=== PATIENT | male | born 1945 | race Caucasian/White ===

== ENCOUNTER 2016-11-15 18:32 | Emergency (ER) | payer MEDICARE, OTHER ==
[2016-11-15 18:51] VITALS: BP 184/85
[2016-11-15] MEDS ORDERED: LIDOCAINE 2% 10 ML MDV SUBQ STA (20:19)
--- NOTE | 2016-11-15 20:23 | ED Physician Documentation ---
History of Present Illness - Stated complaint Stated Complaint: RT TOE PX/DIABETIC - Chief complaint Chief Complaint: General - History obtained from History obtained from: Patient, Family - History of Present Illness Timing: How many days ago (3) Pain level max: 4 Pain level now: 4 Improved by: nothing Worsened by: nothing - Additonal information Additional information: Patient is a diabetic and stubbed his right great toe a few days ago, increasing swelling and pain. Review of Systems Neurologic: denies: Focal weakness, Numbness PD PAST MEDICAL HISTORY - Past Medical History Past Medical History: Yes Cardiovascular: Hypertension, High cholesterol Endocrine/Autoimmune: Type 2 diabetes HEENT: Chronic hearing loss - Past Surgical History Past Surgical History: Yes HEENT: Cataracts - Present Medications Home Medications: Ambulatory Orders Medication Instructions Recorded Confirmed Aspirin 1 tab PO DAILY 11/15/16 11/15/16 Glipizide 1 tab PO DAILY 11/15/16 11/15/16 Lisinopril 1 tab PO DAILY 11/15/16 11/15/16 Meloxicam 1 tab PO DAILY 11/15/16 11/15/16 Metformin HCl 1 tab PO BID 11/15/16 11/15/16 Omeprazole 1 tab PO BID 11/15/16 11/15/16 - Allergies Allergies/Adverse Reactions: Allergies Allergy/AdvReac Type Severity Reaction Status Date / Time Penicillins Allergy Unknown Verified 11/15/16 18:52 - Social History Does the pt smoke?: No Smoking Status: Never smoker Does the pt drink ETOH?: No Does the pt have substance abuse?: No - Immunizations Immunizations are current?: Yes - POLST Patient has POLST: No PD ED PE NORMAL - Vitals Vital signs reviewed: Yes - General General: Alert and oriented X 3, No acute distress - Derm Derm: Warm and dry - Extremities Extremities: Other (R great toe- subungual hematoma elevating the nail from the toe. Redness and swelling present around the toe. TTP over the distal aspect. NVI) - Neuro Neuro: Alert and oriented X 3 - Psych Psych: Normal mood, Normal affect Results - Vitals Vitals: Oxygen O2 Source Room air - Labs Labs: Laboratory Tests 11/15/16 18:50 POC Whole Bld Glucose 109 H - Rads (name of study) R foot xray Radiology: Prelim report reviewed, EMP read contemporaneously, See rad report ( No acute bony abnormality identified. 2. Osteoarthritis of the first MTP joint. ) Procedures - General procedure General procedure: R great toe subungual hematoma trephination - Verbal consent obtained. 2% lidocaine was used as a digital block to anesthetize the great toe. Electrocautery was then used to trephinate the nail and the hematoma was fully evacuated. Redness and swelling resolved around the toe. Neurovascularly intact. No complications. Dressing applied. Tolerated well PD MEDICAL DECISION MAKING - ED course Complexity details: reviewed results, re-evaluated patient, considered differential, d/w patient, d/w family ED course: Patient with right great toe subungual hematoma that was trephinated and evacuated. Tolerated well. No underlying fractures. Bandage applied. Patient counseled regarding signs and symptoms for which I believe and urgent re -evaluation would be necessary. Patient with good understanding of and agreement to plan and is comfortable going home at this time This document was made in part using voice recognition software. While efforts are made to proofread this document, sound alike and grammatical errors may occur. Departure - Departure Disposition: 01 Home, Self Care Clinical Impression: Subungual hematoma Condition: Good Instructions: ED Hematoma Subungual Follow-Up: your,doctor in 1 week for wound check [Other] Comments: soak the toe twice daily in warm water for 2-3 days. Return if you worsen. Keep the toe clean. Your blood pressure was elevated today on check in to the emergency department. This does not mean that you have hypertension, it is a common phenomenon to check into the emergency department and have elevated blood pressure. I recommend that you see your primary care physician within the week to have it rechecked when you're feeling better. Discharge Date/Time: 11/15/16 21:07
[2016-11-15] MEDS ORDERED: LIDOCAINE 2% 10 ML MDV ONE (20:37)
--- NOTE | 2016-11-15 20:38 | XRAY Preliminary Report ---
Exam: XR Foot 3 View RT IMPRESSION: 1. No acute bony abnormality identified. 2. Osteoarthritis of the first MTP joint. [facility] SITE ID: [id number]
--- NOTE | 2016-11-15 20:40 | XRAY Report ---
EXAM: RIGHT FOOT RADIOGRAPHY EXAM DATE: 11/15/2016 08:08 PM. CLINICAL HISTORY: Right great toe injury. Pain and swelling for 5 days. COMPARISON: None. TECHNIQUE: 3 views. FINDINGS: Bones: Normal. No fractures or bone lesions. Joints: Degenerative changes of the first MTP joint. No subluxations. Soft Tissues: Great toe soft tissue swelling. IMPRESSION: 1. No acute bony abnormality identified. 2. Osteoarthritis of the first MTP joint. [facility] Referring Provider Line: [phone] SITE ID: [id number]
== END 2016-11-15 21:07 | disposition home or self-care (01) ==
LOC: ED 18:32
DX: S90.211A Contusion of right great toe with damage to nail, initial encounter (principal); W22.8XXA Striking against or struck by other objects, initial encounter; I10 Essential (primary) hypertension; E11.9 Type 2 diabetes mellitus without complications; Z79.84 Long term (current) use of oral hypoglycemic drugs; E78.00 Pure hypercholesterolemia, unspecified; Z79.82 Long term (current) use of aspirin
CPT/HCPCS: 11740; 99283; 99284

== ENCOUNTER 2016-12-16 12:10 | Observation (INO) | payer MEDICARE, OTHER ==
--- NOTE | 2016-12-16 12:37 | ED Physician Documentation ---
PD HPI FOCAL NEURO - Stated complaint Stated Complaint: FACE NUMBNESS - Chief complaint Chief Complaint: Neuro - History obtained from History obtained from: Patient - History of Present Illness Timing - onset: How many days ago (2) Timing - duration: Days (2) Timing - details: Abrupt onset (he noted his right face feeling "like I went to the dentist" and some weakness and also right leg "giving out" when walking, feeling some weakness noset 2 days ago when he awoke. Right arm is achey, but not notably weak. Symptoms persisted and his daughter noted him with trouble walking today and he told her symptoms, so here for evaluation.), Still present Severity of deficit: Mild Weakness: Face, Leg, Right Numbness: Face, Arm, Leg, Right Associated symptoms: No: Headache, Nausea / vomiting, Seizure, Syncope, Fall, Head injury, Chest pain Contributing factors: negative: Anticoagulated, Atrial fibrillation Baseline status: positive: A&OX3, ambulatory, indep Similar symptoms before: Has not had sx before Recently seen: Not recently seen Review of Systems Constitutional: denies: Fever, Myalgias Nose: denies: Rhinorrhea / runny nose, Congestion Throat: denies: Sore throat Cardiac: denies: Chest pain / pressure, Palpitations Respiratory: denies: Dyspnea, Cough GI: denies: Abdominal Pain, Nausea, Vomiting, Diarrhea, Bloody / black stool : denies: Dysuria, Frequency Skin: denies: Rash, Lesions Musculoskeletal: denies: Extremity pain, Extremity swelling Neurologic: reports: Focal weakness (right face and leg). denies: Near syncope , Altered mental status, Headache, Head injury Psychiatric: denies: Insomnia Endocrine: denies: Weight loss Immunocompromised: denies: Immunocompromised PD PAST MEDICAL HISTORY - Past Medical History Cardiovascular: Hypertension, High cholesterol Endocrine/Autoimmune: Type 2 diabetes HEENT: Chronic hearing loss - Past Surgical History Past Surgical History: Yes HEENT: Cataracts - Present Medications Home Medications: Ambulatory Orders Medication Instructions Recorded Confirmed Aspirin 1 tab PO DAILY 11/15/16 12/16/16 Glipizide 1 tab PO DAILY 11/15/16 12/16/16 Lisinopril 1 tab PO DAILY 11/15/16 12/16/16 Meloxicam 1 tab PO DAILY 11/15/16 12/16/16 Metformin HCl 1 tab PO BID 11/15/16 12/16/16 Omeprazole 1 tab PO BID 11/15/16 12/16/16 Rosuvastatin Calcium 10 mg PO DAILY 12/16/16 12/16/16 - Allergies Allergies/Adverse Reactions: Allergies Allergy/AdvReac Type Severity Reaction Status Date / Time Penicillins Allergy Unknown Verified 12/16/16 12:18 - Living Situation Living Situation: reports: Other (visiting from [place] to see his daughter and help work on 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 ) - Neck Neck: Supple, no meningeal sign - Cardiac Cardiac: RRR, No murmur - Respiratory Respiratory: Clear bilaterally - Abdomen Abdomen: Normal bowel sounds, Soft, Non tender, Non distended - Male Male : Deferred - Rectal Rectal: Deferred - Back Back: No CVA TTP, No spinal TTP - Derm Derm: Normal color, Warm and dry - Extremities Extremities: No tenderness to palpate, Normal ROM s pain, No calf tenderness / cord - Neuro Neuro: Alert and oriented X 3, Normal speech, Other (gait assessment is unsteady and needing assistance as right leg wobbly and some apparent incoordination with it. ) NIHSS - Level of Consciousness Level of consciousness: (0) Alert, Keenly responsive LOC Questions: (0) Answers both Q's correct LOC Commands: (0) Performs both correctly - Gaze Best Gaze: (0) Normal - Visual Visual: (0) No loss - Facial Palsy Facial Palsy: (1) Minor paralysis - Motor Arms (both separate) Motor Arm (right): (0) No drift Motor Arm (left): (0) No drift - Motor Legs (both separate) Motor Leg (right): (1) Drift Motor Leg (left): (0) No drift - Limb Ataxia Limb Ataxia: (0) Absent - Sensory Sensory: (1) [id number] loss - Best Language Best Language: (0) No aphasia - Dysarthria Dysarthria: (0) Normal - Extinction and Inattention (formally neg Extinction and inattention: (0) No abnormality - Total Score/Results Total Score/Result: 3 Results - Vitals Vitals: Vital Signs - 24 hr 12/16/16 12:12 Temperature 36.7 C Heart Rate 68 Respiratory 16 Rate Blood Pressure 212/93 H O2 Saturation 99 Oxygen O2 Source Room air - EKG (time done) 13:54 Rate: Rate (enter#) (59) Rhythm: NSR Sharon: Normal Intervals: Normal IL QRS: Normal, LVH Ischemia: Normal ST segments. No: ST elevation c/w ischemia, ST depression Compare to prior EKG: Old EKG unavailable - Labs Labs: Laboratory Tests 12/16/16 12/16/16 12/16/16 13:40 13:40 13:40 WBC 7.1 RBC 5.47 Hgb 15.5 Hct 45.8 MCV 83.7 MCH 28.3 MCHC 33.8 RDW 13.7 Plt Count 264 MPV 8.1 Neut # 4.4 Lymph # 1.8 Kidder # 0.5 Eos # 0.3 Baso # 0.1 Absolute Nucleated RBC 0.00 Nucleated RBC % 0.0 ESR 4 Sodium 138 Potassium 4.0 Chloride 105 Carbon Dioxide 25 Anion Gap 8.0 BUN 18 Creatinine 0.7 Estimated GFR (MDRD) 111 Glucose 124 H Calcium 9.4 Magnesium 2.1 Total Bilirubin 0.7 AST 18 ALT 20 Alkaline Phosphatase 80 Total Protein 7.4 Albumin 4.2 Globulin 3.2 Albumin/Globulin Ratio 1.3 Lipase 19 L - Rads (name of study) head CT Radiology: Prelim report reviewed (no acute process), Discussed with rads, EMP read contemporaneously (no masses, no acute bleed) PD MEDICAL DECISION MAKING - ED course Complexity details: reviewed results, re-evaluated patient, considered differential (likel CVA with MRI unavailable today. Symptoms for 2 days so no acute interventions. BP elevated, but could be secondary. CT showing no bleed nor masses. Talked with Hospitalist who agrees with admission for MRI/ carotid studies/ PT evaluation. ), d/w patient Departure - Departure Disposition: ED Place in Observation Clinical Impression: Right sided weakness Cerebrovascular accident (CVA) Qualifiers: CVA mechanism: unspecified Qualified Code(s): I63.9 - Cerebral infarction, unspecified Condition: Stable Record reviewed to determine appropriate education?: Yes
[2016-12-16 13:52] LABS: BASOPHILS # (AUTO) 0.1 10^3/uL (0.0-0.1); BASOPHILS % (AUTO) 0.8 %; EOSINOPHILS # (AUTO) 0.3 10^3/uL (0.0-0.7); EOSINOPHILS % (AUTO) 4.1 %; HCT - HEMATOCRIT 45.8 % (42.0-52.0); HGB - HEMOGLOBIN 15.5 g/dL (14.0-18.0); LYMPHOCYTES # (AUTO) 1.8 10^3/uL (1.5-3.5); LYMPHOCYTES % (AUTO) 25.3 %; MEAN CORPUSCULAR HEMOGLOBIN 28.3 pg (27.0-31.0); MEAN CORPUSCULAR HGB CONC 33.8 g/dL (32.0-36.0); MEAN CORPUSCULAR VOLUME 83.7 fL (80.0-94.0); MEAN PLATELET VOLUME 8.1 fL (7.4-11.4); MONOCYTES # (AUTO) 0.5 10^3/uL (0.0-1.0); MONOCYTES % (AUTO) 7.5 %; NEUTROPHILS # (AUTO) 4.4 10^3/uL (1.5-6.6); NEUTROPHILS % (AUTO) 62.3 %; RED BLOOD COUNT 5.47 10^6/uL (4.70-6.10); RED CELL DISTRIBUTION WIDTH 13.7 % (12.0-15.0); UNCORRECTED WHITE BLOOD COUNT 7.1 x10^3/uL; WHITE BLOOD COUNT 7.1 x10^3/uL (4.8-10.8)
--- NOTE | 2016-12-16 13:56 | CT Preliminary Report ---
Exam: CT HEAD W/O STROKE PROTOCOL IMPRESSION: Generalized age-related cortical atrophic changes without evidence of acute intracranial abnormality. CRITICAL TEST: The findings were discussed with Dr. Smith on 12/16/2016 13:55 [facility] SITE ID: [id number]
--- NOTE | 2016-12-16 13:59 | CT Report ---
EXAM: CT HEAD EXAM DATE: 12/16/2016 01:32 PM. CLINICAL HISTORY: Right face and leg weakness for 2 days. COMPARISON: None. TECHNIQUE: Multiaxial CT images were obtained from the foramen magnum to the vertex. IV contrast: Non e. Reformats: Coronal. In accordance with CT protocol optimization, one or more of the following dose reduction techniques w ere utilized for this exam: automated exposure control, adjustment of mA and/or KV based on patient s ize, or use of iterative reconstructive technique. FINDINGS: Parenchyma: No intraparenchymal hemorrhage. No evidence of mass, midline shift, or CT findings of acu te infarction. Panda-white differentiation is distinct. Extraaxial Spaces: Normal for age. No subdural or epidural collections identified. Ventricles: The ventricles and cortical sulci are enlarged, consistent with age-related tissue loss. Sinuses and orbits: Status post bilateral lens replacement surgery. Imaged paranasal sinuses, orbits otherwise, and mastoids show no significant abnormality. Bones: No evidence of fracture or calvarial defect. Other: Diffuse chronic microangiopathic white matter changes are evident. IMPRESSION: Generalized age-related cortical atrophic changes without evidence of acute intracranial abnormality. CRITICAL TEST: The findings were discussed with Dr. Smith on 12/16/2016 13:55 [facility] Referring Provider Line: [phone] SITE ID: [id number]
[2016-12-16 14:03] LABS: ALBUMIN/GLOBULIN RATIO 1.3 (1.0-2.2); BILIRUBIN,TOTAL 0.7 mg/dL (0.2-1.0); CALCIUM 9.4 mg/dL (8.5-10.3); CREATININE 0.7 mg/dL (0.6-1.2); MAGNESIUM 2.1 mg/dL (1.7-2.8); TOTAL PROTEIN 7.4 g/dL (6.7-8.2)
[2016-12-16] MEDS ORDERED: ASPIRIN CHEW 81 MG TABLET PO STA (14:33)
[2016-12-16] MEDS ORDERED: METOPROLOL 5 MG/5 ML VIAL IVP STA (14:37)
[2016-12-16] MEDS ORDERED: ASPIRIN CHEW 81 MG TABLET ONE (14:47)
[2016-12-16] MEDS ORDERED: METOPROLOL 5 MG/5 ML VIAL IVP ONE (14:50)
[2016-12-16] MEDS ORDERED: SODIUM CHLORIDE FLUSH 0.9% 10 ML SYRINGE IVP PRN (15:06)
[2016-12-16 15:49] LABS: PT - PROTHROMBIN TIME 11.8 secs (9.9-12.6)
[2016-12-16 15:56] LABS: PARTIAL THROMBOPLASTIN TIME 26.8 secs (24.9-33.3)
--- NOTE | 2016-12-16 16:45 | HISTORY & PHYSICAL EXAMINATION ---
Chief Complaint - Chief Complaint Chief Complaint: Right sided weakness, facial numbness, fall Stroke/TIA/Neuro Template - Admitted From Admitted from: ED - History Obtained From Records Reviewed: RN notes reviewed, Other (Family reports, ER MD.) History obtained from: Patient, Family Exam limitations: No limitations - History of Present Illness Problem Location Description: Right sided weakness/fall w/o injury. Severity at the worst: reports: Moderate Symptom Quality: reports: Numbness, Headache, Facial droop, Ataxia Timing: reports: Abrupt onset Date of onset: 12/14/16 Improved with: reports: Nothing Worsened by: reports: Nothing Associated symptoms: reports: Feeling faint / dizzy HPI Comment/Other: Boubacar Herron is a 71 year old who resides independently with in the [facility] [place] and has a past medical history of diabetes mellitus type 2 , BPH with nocturia, exposure of asbestos, hyperlipidemia, hypertension, and right shoulder pain. He noted a numbness to right cheek and describes it as "like getting Novocaine at the dentist", a headache that has been persistent since the onset of symptoms 2 days ago. In addition, weakness with mild tingling in right arm/leg about 2 days ago accompanied by a progressive ataxia including an unwitnessed fall last evening without reported injury. He describes how he had been using the nearby furniture and pina to steady himself. He would not have come to the ER, but daughter, Shayna insisted. Once patient was in the ER, he was noted to be hypertensive with systolic B/P 180-210's and diastolic B/P 90-110's. A CT of the head without contrast was obtained that was unremarkable, but with the positive clinical findings, further testing was warranted. 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 . - POLST Patient has POLST: No POLST Status: Full Code - Family History Family History: Mother: , Diabetes, Type 2, Father: , CAD, [place], Sister: Cancer Meds/Allgy - Home Medications Home Medications: Ambulatory Orders Medication Instructions Recorded Confirmed Aspirin 1 tab PO DAILY 11/15/16 12/16/16 Glipizide 1 tab PO DAILY 11/15/16 12/16/16 Lisinopril 1 tab PO DAILY 11/15/16 12/16/16 Meloxicam 1 tab PO DAILY 11/15/16 12/16/16 Metformin HCl 1 tab PO BID 11/15/16 12/16/16 Omeprazole 1 tab PO BID 11/15/16 12/16/16 Rosuvastatin Calcium 10 mg PO DAILY 12/16/16 12/16/16 - Allergies Allergies/Adverse Reactions: Allergies Allergy/AdvReac Type Severity Reaction Status Date / Time Penicillins Allergy Unknown Verified 12/16/16 12:18 Review of Systems - Constitutional Constitutional: reports: Weakness - Eyes Eyes: reports: Vision loss, Other (right eye ptosis.) - Ears, Nose & Throat Ears, Nose & Throat: reports: Hearing loss (bilateral- unable to hear finger rub.), Nasal congestion, Dental decay (ongoing dental work.) - Cardiovascular Cariovascular: reports: Palpitations (noted occasionally at night per patient report.), Lightheadedness (with position change from supine to sitting.) - Gastrointestinal Gastrointestinal: reports: Constipation, Reflux/heartburn - Genitourinary Genitourinary: reports: Frequency, Nocturia (BPH) - Musculoskeletal Musculoskeletal: reports: Muscle aches (right shoulder soreness, worse w/ movement.), Stiffness, Muscle weakness - Neurological Neurological: reports: Headache, Numbness, Memory problems, Abnormal gait, Incoordination, Other (body worker strength equal) - Psychiatric Psychiatric: reports: Other (mild memory loss or lack of comprehension.) - All Other Systems All Other Systems: reports: Reviewed and negative Exam - Vital Signs Reviewed Vital Signs: Yes Vital Signs: Vital Signs x48h Temp Pulse Resp BP Pulse Ox 12/16/16 14:55 53 L 17 185/80 H 96 12/16/16 14:49 60 18 190/88 H 95 12/16/16 12:12 36.7 C 68 16 212/93 H 99 - Physical Exam General Appearance: positive: No acute distress, Alert Eyes Bilateral: positive: EOMI, Other (mild icterus bilateral.) ENT: positive: ENT inspection nml, Pharynx nml, No signs of dehydration Neck: positive: Nml inspection, Thyroid nml, No JVD, Trachea midline Respiratory: positive: Chest non-tender, No respiratory distress, Breath sounds nml Cardiovascular: positive: Irregularly irregular, Systolic murmur Abdomen: positive: Non-tender, No organomegaly, Nml bowel sounds, No distention Back: positive: Nml inspection Skin: positive: Color nml, No rash, Warm, Dry Extremities: positive: Non-tender, Full ROM, Nml appearance, No pedal edema Neurologic/Psychiatric: positive: Oriented x3, Mood/affect nml, Other ( decreased sensation RUE & RLE.) Results - Lab Results Fish Bones: 12/16/16 13:40 12/16/16 13:40 Other Lab Results: Lab Results x24hrs 12/16/16 12/16/16 12/16/16 Range/Units 13:40 13:40 13:40 WBC (4.8-10.8) x10^3/uL RBC (4.70-6.10) 10^6/uL Hgb (14.0-18.0) g/dL Hct (42.0-52.0) % MCV (80.0-94.0) fL MCH (27.0-31.0) pg MCHC (32.0-36.0) g/dL RDW (12.0-15.0) % Plt Count (130-450) 10^3/uL MPV (7.4-11.4) fL Neut # (1.5-6.6) 10^3/uL Lymph # (1.5-3.5) 10^3/uL Branch # (0.0-1.0) 10^3/uL Eos # (0.0-0.7) 10^3/uL Baso # (0.0-0.1) 10^3/uL Absolute Nucleated RBC x10^3/uL Nucleated RBC % /100WBC ESR 4 (0-20) mm/Hr PT 11.8 (9.9-12.6) secs INR 1.0 (0.8-1.2) APTT 26.8 (24.9-33.3) secs Sodium 138 (135-145) mmol/L Potassium 4.0 (3.5-5.0) mmol/L Chloride 105 (101-111) mmol/L Carbon Dioxide 25 (21-32) mmol/L Anion Gap 8.0 (6-13) BUN 18 (6-20) mg/dL Creatinine 0.7 (0.6-1.2) mg/dL Estimated GFR (MDRD) 111 (>89) Glucose 124 H (70-100) mg/dL Calcium 9.4 (8.5-10.3) mg/dL Magnesium 2.1 (1.7-2.8) mg/dL Total Bilirubin 0.7 (0.2-1.0) mg/dL AST 18 (10-42) IU/L ALT 20 (10-60) IU/L Alkaline Phosphatase 80 (42-121) IU/L Total Protein 7.4 (6.7-8.2) g/dL Albumin 4.2 (3.2-5.5) g/dL Globulin 3.2 (2.1-4.2) g/dL Albumin/Globulin Ratio 1.3 (1.0-2.2) Lipase 19 L (22-51) U/L 12/16/16 Range/Units 13:40 WBC 7.1 (4.8-10.8) x10^3/uL RBC 5.47 (4.70-6.10) 10^6/uL Hgb 15.5 (14.0-18.0) g/dL Hct 45.8 (42.0-52.0) % MCV 83.7 (80.0-94.0) fL MCH 28.3 (27.0-31.0) pg MCHC 33.8 (32.0-36.0) g/dL RDW 13.7 (12.0-15.0) % Plt Count 264 (130-450) 10^3/uL MPV 8.1 (7.4-11.4) fL Neut # 4.4 (1.5-6.6) 10^3/uL Lymph # 1.8 (1.5-3.5) 10^3/uL Branch # 0.5 (0.0-1.0) 10^3/uL Eos # 0.3 (0.0-0.7) 10^3/uL Baso # 0.1 (0.0-0.1) 10^3/uL Absolute Nucleated RBC 0.00 x10^3/uL Nucleated RBC % 0.0 /100WBC ESR (0-20) mm/Hr PT (9.9-12.6) secs INR (0.8-1.2) APTT (24.9-33.3) secs Sodium (135-145) mmol/L Potassium (3.5-5.0) mmol/L Chloride (101-111) mmol/L Carbon Dioxide (21-32) mmol/L Anion Gap (6-13) BUN (6-20) mg/dL Creatinine (0.6-1.2) mg/dL Estimated GFR (MDRD) (>89) Glucose (70-100) mg/dL Calcium (8.5-10.3) mg/dL Magnesium (1.7-2.8) mg/dL Total Bilirubin (0.2-1.0) mg/dL AST (10-42) IU/L ALT (10-60) IU/L Alkaline Phosphatase (42-121) IU/L Total Protein (6.7-8.2) g/dL Albumin (3.2-5.5) g/dL Globulin (2.1-4.2) g/dL Albumin/Globulin Ratio (1.0-2.2) Lipase (22-51) U/L ARRA - Anticipated LOS Anticipated Stay Length: Less than 2 midnights - AMI - Statin at Admit Aspirin Prescribed on Admit: Yes - Stroke - Rehab Assessment Rehab services assessment to be ordered?: Yes Impression/Plan - Problem List Problem List: 1. Right sided weakness-Fall precautions. Carotid doppler shows mild to moderate atherolsclerotic plaque, MRI w/o contrast in AM, Medical management with statin, ASA, PT/OT & speech therapy evaluations-pending. 2. Right facial droop-Fall precautions. Carotid doppler shows mild to moderate atherolsclerotic plaque, MRI w/o contrast in AM, Medical management with statin , ASA, PT/OT & speech therapy evaluations-pending. 3. Right eye ptosis- Monitor for worsening vision. 4. Hypertension- IV metoprolol in ER, Norvasc 10mg newly prescribed PO daily. Resumed home lisinopril 10mg PO. Hydralazine IV PRN for SBP >180mmhg. Monitor VS. 5. Fall- Fall precautions with nursing staff. 6. Diabetes Mellitus type 2-controlled. [id number]. Resume home metformin and glyburide. 7. BPH- Bladder scans and straight cath for urine >350ml, monitor. 8. Sinusitis- Saline nasal spray PRN. 9. Mild memory loss- SLUMs exam to be completed by OT-pending. Suspect r/t acute CVA.
[2016-12-16] MEDS: ENOXAPARIN 80 MG/0.8 ML SYRINGE SUBQ SCH (17:42)
--- NOTE | 2016-12-16 17:56 | Ultrasound Preliminary Report ---
Exam: US CAROTID DOPPLER COMPLETE IMPRESSION: Mild to moderate atherosclerotic plaque without hemodynamically significant carotid steno sis. Validated velocity measurements with angiographic measurements and velocity criteria are extrapolated from diameter data as defined by the Society of Radiologists in Ultrasound Consensus Conference Radi ology 2003; 229;340-346. [facility] SITE ID: [id number]
--- NOTE | 2016-12-16 18:06 | Ultrasound Report ---
EXAM: CAROTID DOPPLER ULTRASOUND EXAM DATE: 12/16/2016 05:30 PM. CLINICAL HISTORY: Right facial numbness with right leg weakness for several days. COMPARISON: None. TECHNIQUE: Real-time sonographic vascular imaging was performed by the material inspector through the caroti d arterial system with a linear transducer utilizing color-flow, Doppler flow and spectral analysis. Multiple practice representative static images were saved for review. FINDINGS: There is some tortuosity of the carotid vasculature with mild to moderate atherosclerotic p laque diffusely. However, no hemodynamically significant stenosis is seen. Right: RCCA Prox: PSV 68 cm/sec. RCCA Dist: PSV 62 cm/sec, EDV 10 cm/sec. RECA: PSV 95 cm/sec. R Bulb: PSV 59 cm/sec, EDV 13 cm/sec, ICA/CCA ratio 0.95, degree of stenosis <50%, plaque estimate <5 0%. RUBY Prox: PSV 62 cm/sec, EDV 20 cm/sec, ICA/CCA ratio 1, degree of stenosis <50%, plaque estimate <5 0%. RUBY Mid: PSV 80 cm/sec, EDV 24 cm/sec, ICA/CCA ratio 1.3, degree of stenosis <50%, plaque estimate < 50%. RUBY Dist: PSV 106 cm/sec, EDV 34 cm/sec, ICA/CCA ratio 1.7, degree of stenosis <50%, plaque estimat e <50%. RVA: PSV 54 cm/sec. RVA flow direction: Antegrade. Left: LCCA Prox: PSV 118 cm/sec. LCCA Dist: PSV 48 cm/sec, EDV 10 cm/sec. LECA: PSV 79 cm/sec. L Bulb: PSV 55 cm/sec, EDV 11 cm/sec, ICA/CCA ratio 1.1, degree of stenosis <50%, plaque estimate <50 %. LICA Prox: PSV 60 cm/sec, EDV 19 cm/sec, ICA/CCA ratio 1.3, degree of stenosis <50%, plaque estimate <50%. LICA Mid: PSV 73 cm/sec, EDV 24 cm/sec, ICA/CCA ratio 1.5, degree of stenosis <50%, plaque estimate < 50%. LICA Dist: PSV 92 cm/sec, EDV 32 cm/sec, ICA/CCA ratio 1.9, degree of stenosis <50%, plaque estimate <50%. LVA: PSV 54 cm/sec. LVA flow direction: Antegrade. Other: None. IMPRESSION: Mild to moderate atherosclerotic plaque without hemodynamically significant carotid steno sis. Validated velocity measurements with angiographic measurements and velocity criteria are extrapolated from diameter data as defined by the Society of Radiologists in Ultrasound Consensus Conference Radi ology 2003; 229;340-346. [facility] Referring Provider Line: [phone] SITE ID: [id number]
[2016-12-16] MEDS: amLODIPine 5 MG TABLET PO SCH (18:21)
[2016-12-16] MEDS: ACETAMINOPHEN 325 MG TABLET PO PRN (18:26)
[2016-12-16] MEDS ORDERED: hydrALAZINE INJ 20 MG/ML VIAL IVP PRN (18:46)
[2016-12-16] MEDS ORDERED: SODIUM CHLORIDE 0.65% NASAL SPRAY NAS PRN (18:53)
[2016-12-16 20:11] LABS: HEMOGLOBIN A1C 0.72 g/dL
[2016-12-16] MEDS ORDERED: ATORVASTATIN 40 MG TABLET PO SCH (21:00)
[2016-12-16] MEDS: SODIUM CHLORIDE FLUSH 0.9% 10 ML SYRINGE IVP SCH (21:42)
[2016-12-17] MEDS: ENOXAPARIN 80 MG/0.8 ML SYRINGE SUBQ SCH (05:17)
[2016-12-17] MEDS: SODIUM CHLORIDE FLUSH 0.9% 10 ML SYRINGE IVP SCH (05:19)
[2016-12-17 06:17] LABS: ALBUMIN/GLOBULIN RATIO 1.4 (1.0-2.2); BILIRUBIN,TOTAL 0.7 mg/dL (0.2-1.0); CREATININE 0.7 mg/dL (0.6-1.2); POTASSIUM 3.8 mmol/L (3.5-5.0); TOTAL PROTEIN 6.9 g/dL (6.7-8.2)
[2016-12-17] MEDS ORDERED: ASPIRIN 325 MG TABLET PO SCH (08:00)
[2016-12-17] MEDS ORDERED: metFORMIN 500 MG TABLET PO SCH (08:00)
[2016-12-17] MEDS ORDERED: PANTOPRAZOLE 40 MG TABLET PO SCH (08:00)
--- NOTE | 2016-12-17 08:52 | DISCHARGE SUMMARY ---
Discharge Summary Admit Date: 12/16/16 Discharge Date: 12/17/16 Discharging Provider: Huyen Dale NP Primary Care Provider: Ronan Shen Condition at Discharge: Fair Discharge Disposition: Home Health Service Discharge Facility Name: Home with daughter - DIAGNOSES Admission Diagnoses: Acute right sided weakness Acute right facial droop, with possible CVA Controlled type 2 diabetes mellitus, without long-term use of insulin Secondary Hypertension with diabetes mellitus Fall at home, initial BPH with urinary obs/LUTS Mild memory loss Discharge Diagnoses with Status of Each Condition: CVA with right sided weakness Type 2 diabetes mellitus without complications Essential HTN Fall without injury Enlarged prostate with lower urinary tract symptoms, nocturia Ataxia r/t CVA - HPI History of Present Illness: Boubacar Herron is a 71 year old who resides independently with in the [facility] and has a past medical history of diabetes mellitus type 2 , BPH with nocturia, exposure of asbestos, hyperlipidemia, hypertension, and right shoulder pain. He noted a numbness to right cheek and describes it as "like getting Novocaine at the dentist", a headache that has been persistent since the onset of symptoms 2 days ago. In addition, weakness with mild tingling in right arm/leg about 2 days ago accompanied by a progressive ataxia including an unwitnessed fall last evening without reported injury. He describes how he had been using the nearby furniture and pina to steady himself. He would not have come to the ER, but daughterShayna insisted. Once patient was in the ER, he was noted to be hypertensive with systolic B/P 180-210's and diastolic B/P 90-110's. A CT of the head without contrast was obtained that was unremarkable, but with the positive clinical findings, further testing was warranted. - CONSULTS | PROCEDURES Consultations: PT/OT/Speech. - HOSPITAL COURSE Hospital Course: 1. CVA- MRI head confirms. PT rehab ordered for out patient treatment. Assistive devices recommended. 2. Right sided weakness-Fall precautions. Carotid doppler shows mild to moderate atherolsclerotic plaque, MRI w/o contrast confirmed CVA, Medical management with statin, ASA, PT/OT therapy evaluations recommended outpatient therapy for gait training and safety awareness. Speech evaluation recommended regular diet with thin liquids. 3. Right facial droop-Fall precautions. Carotid doppler shows mild to moderate atherolsclerotic plaque, MRI w/o contrast confirmed CVA, Medical management with statin, ASA, PT/OT therapy evaluations recommended outpatient therapy for gait training and safety awareness. Speech evaluation recommended regular diet with thin liquids. 4. Right eye ptosis- Monitor for worsening vision. 5. Hypertension- IV metoprolol in ER, Norvasc 5 mg newly prescribed PO daily. Resumed home lisinopril 10mg PO. Hydralazine IV PRN for SBP >180mmhg. Monitor VS. 6. Fall- Fall precautions with nursing staff. Outpatient rehab recommended. 7. Diabetes Mellitus type 2-controlled. HgA1C 6.3 on 12/16/16. Continue home metformin and glyburide. 8. BPH- Bladder scans and straight cath for urine >350ml, monitor. No problems with urination at the time of discharge. 9. Sinusitis- Saline nasal spray PRN. 10. Mild memory loss- See OT therapy notes. 11. DVT prophylaxis- Lovenox SQ daily per pharmacy, GI prophylaxis not indicated. 12. Ataxia r/t recent CVA- Physical therapy recommended on out patient basis. DaughterShayna purchased 4-wheeled walker and shower chair for home use. - ALLERGIES Allergies/Adverse Reactions: Allergies Allergy/AdvReac Type Severity Reaction Status Date / Time Penicillins Allergy Unknown Verified 12/16/16 12:18 - MEDICATIONS Home Medications: Ambulatory Orders Medication Instructions Recorded Confirmed RX: Aspirin 81 tab PO DAILY 11/15/16 12/17/16 RX: Glipizide 10 mg PO DAILY 11/15/16 12/17/16 RX: Lisinopril 10 mg PO DAILY 11/15/16 12/17/16 RX: Meloxicam 15 mg PO DAILY 11/15/16 12/17/16 RX: Metformin HCl 1,000 mg PO BID 11/15/16 12/17/16 RX: Omeprazole 20 mg PO BID 11/15/16 12/17/16 RX: Rosuvastatin Calcium 10 mg PO DAILY 12/16/16 12/16/16 RX: Lisinopril [Zestril] 10 mg PO DAILY #30 tablet 12/17/16 RX: amLODIPine [Norvasc] 5 mg PO DAILY #30 tablet 12/17/16 - PHYSICAL EXAM AT DISCHARGE General Appearance: positive: No acute distress, Alert Eyes Bilateral: positive: PERRL, Other (right eye lid ptosis.) ENT: positive: ENT inspection nml, No signs of dehydration, Dry mucous membranes Neck: positive: Nml inspection Respiratory: positive: Chest non-tender, No respiratory distress, Breath sounds nml Cardiovascular: positive: Regular rate & rhythm, Systolic murmur Abdomen: positive: Non-tender, No organomegaly, Nml bowel sounds, Other (rounded , soft) Back: positive: Nml inspection Skin: positive: Color nml Extremities: positive: No pedal edema Neurologic/Psychiatric: positive: Oriented x3, Facial droop (right sided facial droop w/ N/T.) - LABS Result Diagrams: 12/16/16 13:40 12/17/16 05:54 - DIAGNOSTIC IMAGING Diagnostic Imaging Results: Prelim report reviewed (MRI brain w/o contrast) Diagnostic Imaging Results Comments: A HARDCOPY OF MRI, ECHO, AND CT WERE CREATED AND HANDED TO PATIENT/DAUGHTER TO GIVE TO PCP AT FOLLOW-UP VISIT: MRI head w/o contrast: 12/17/16 Impression: Asymmetric nonspecific 2.5 mm focus of diffusion hyperintensity in the right lateral medulla, this could represent a recent ischemic infarct. Imaging artifact may also be considered. No other MRI evidence for acute intracranial abnormality. Mild generalized age-related changes. Bed side echocardiogram: 12/17/16 Underlying sinus rhythm. LV is normal sized , mild LV concentric hypertrophy, estimated ejection fraction is 65-70%. Consistent with grade I diastolic dysfunction. No regional wall motion abnormalities are seen. The RV is normal size and function. A trace amount of aortic and mitral/tricuspid regurg is noted. Normal pulmonary valve. Bubble study was negative for an atrial shunt. The inferior vena cava is dilated (> 2.1cm) with >50% inspiratory collapse which is suggestive of an estimated RAP of 8 mmHg. No pleural effusion or pericardial effusion noted. Speech pathology consult: No language deficits noted. He has a very mild ataxic type dysarthria which is hardly noticeable, and does not impact intelligibility. Recommend a regular textured diet with thin liquids. Carotid doppler: 12/16/16 Mild to moderate atherosclerotic plaque without hemodynamically significant carotid stenosis. - TIME SPENT Time Spent in Discharge (Minutes): 90
[2016-12-17] MEDS ORDERED: LISINOPRIL 5 MG TABLET PO SCH (09:00)
[2016-12-17] MEDS ORDERED: POLYETHYLENE GLYCOL 3350 17 GM PACKET PO SCH (09:00)
[2016-12-17] MEDS ORDERED: DEXAMETHASONE 10 MG/ML VIAL ONE (09:03)
[2016-12-17] MEDS ORDERED: CHERRY SYRUP 10 ML UDC PO ONE (09:04)
--- NOTE | 2016-12-17 09:16 | Discharge Plan ---
Discharge Plan Disposition: Home Health Service Condition: Fair Prescriptions: amLODIPine [Norvasc] 5 mg PO DAILY #30 tablet Lisinopril [Zestril] 10 mg PO DAILY #30 tablet Diet: Cardiac (ADA) Activity Restrictions: Activity as Tolerated Shower Restrictions: No Driving Restrictions: Yes Assistance Devices: Walker, Cane Weight Bearing: Full Weight Instruction Topics: Stroke Sx, TIA, Amlodipine Additional Instructions or Follow Up instructions: Please rest for the next few days! If you notice more weakness, fatigue, changes in vision, worsening of headaches , or confusion, please seek medical attention. Continue to monitor blood glucose. Take all medications as prescribed. See PCP in the next 3-5 days. Please call a near by family or internal medicine clinic if you will not be near your doctor in [place]. You have no travel restriction, but travel with care and the use of assistive devices for safe travels. Physical therapy is recommended due to unsteady gait and the need for assisting devices. A referral has been made for out patient rehab services for gait training using a cane. A DVD has been created for you to forward to your next MD appointment. Follow-Up Care: Outpatient Rehab - PT No Smoking: If you smoke, Please STOP! Call for help.
[2016-12-17] MEDS: amLODIPine 5 MG TABLET PO SCH (09:50)
[2016-12-17] MEDS: ACETAMINOPHEN 325 MG TABLET PO PRN (11:32)
--- NOTE | 2016-12-17 11:37 | MRI Preliminary Report ---
Exam: MRI BRAIN W/O IMPRESSION: 1. Asymmetric nonspecific 2.5 mm focus of diffusion hyperintensity in the right lateral medulla, this could represent a recent ischemic infarct. Imaging artifact may also be considered. 2. No other MRI evidence for acute intracranial abnormality. 3. Mild generalized age-related changes. SITE ID: [id number]
--- NOTE | 2016-12-17 11:58 | MRI Report ---
EXAM: MRI BRAIN WITHOUT CONTRAST EXAM DATE: 12/17/2016 11:15 AM. CLINICAL HISTORY: Right side weakness. Facial numbness. COMPARISON: No prior MRI. TECHNIQUE: Multiplanar, multisequence T1-weighted and fluid-sensitive MR sequences of the brain were performed. Sequences optimized for routine evaluation. Other: None. IV Contrast: None. FINDINGS: Brain Volume: Mild generalized cerebral volume loss, likely from aging. Parenchyma/Dura: 2.5 mm focus of asymmetric mild diffusion hyperintensity at the lateral aspect of th e right medulla and in the brainstem. No other evidence for significant perfusion abnormality. No evidence for hemorrhage, mass effect or midline shift. Mild multifocal patchy and nodular cerebral White matter T2 hyperintense signal changes, nonspecific but likely secondary to aging and relatively mild chronic small vessel ischemic white matter disease. Ventricles/Cisterns: No hydrocephalus. Sinuses: Mild maxillary and ethmoid sinus mucosal thickening. No air-fluid level. Bones: No focal pathologic appearing marrow signal changes in the skull or clivus. Other: The major arterial skull base flow voids are present. Prior lens extractions. IMPRESSION: 1. Asymmetric nonspecific 2.5 mm focus of diffusion hyperintensity in the right lateral medulla, this could represent a recent ischemic infarct. Imaging artifact may also be considered. 2. No other MRI evidence for acute intracranial abnormality. 3. Mild generalized age-related changes. Referring Provider Line: [phone] SITE ID: [id number]
[2016-12-17 16:30] VITALS: BP 174/84
[2016-12-17] MEDS ORDERED: ATORVASTATIN 40 MG TABLET PO SCH (21:00)
[2016-12-18] MEDS ORDERED: glipiZIDE 5 MG TABLET PO SCH (07:30)
== END 2016-12-17 17:45 | disposition home health service (06) ==
LOC: ED 12:10 → OBS 15:06
PROVIDERS: ADMIT Nurse Practitioner; ATTEND Nurse Practitioner
DX: I63.9 Cerebral infarction, unspecified (principal); G81.91 Hemiplegia, unspecified affecting right dominant side; R29.810 Facial weakness; R27.0 Ataxia, unspecified; H02.401 Unspecified ptosis of right eyelid; I10 Essential (primary) hypertension; E11.9 Type 2 diabetes mellitus without complications; J32.9 Chronic sinusitis, unspecified; R41.3 Other amnesia; N40.1 Benign prostatic hyperplasia with lower urinary tract symptoms; R35.1 Nocturia; R35.0 Frequency of micturition; E78.5 Hyperlipidemia, unspecified; K21.9 Gastro-esophageal reflux disease without esophagitis; H91.90 Unspecified hearing loss, unspecified ear; Z77.090 Contact with and (suspected) exposure to asbestos; Z79.84 Long term (current) use of oral hypoglycemic drugs; Z79.82 Long term (current) use of aspirin; Z79.899 Other long term (current) drug therapy; Z91.81 History of falling; Z87.891 Personal history of nicotine dependence
CPT/HCPCS: 36415; 70450; 70551; 80053; 83036; 83690; 83735; 84443; 84484; 85025; 85610; 85651; 85730; 92610; 93005; 93306; 93880; 96374; 97116; 97162; 97166; 99283; 99285; A9270; G0378; G8978; G8979; G8980; G8986; G8987; G8988; G8996; G8997; G8998; J1650; 96372